=== PATIENT | male | born 1960 | race Caucasian/White ===

== ENCOUNTER 2021-08-04 10:25 | Emergency (ER) | payer OTHER ==
--- OUTSIDE RECORDS SUMMARY | 2021-08-04 10:28 | XMS REPORT | Continuity of Care Document ---
:1960 Author Organization [facility] Address [address] [place] [address] Dr. Goff [address] [place] [id number] Care Team Providers Name Role Phone DOTTIE Attending Clinician Unavailable Payers Payer Name Policy Type Policy Number Effective Date Expiration Date Robert cramer [facility] [id number] 2021 00:00:00 CHOICE/CHOICE PLUS Problems This patient has no known problems. Allergies, Adverse Reactions, Alerts This patient has no known allergies or adverse reactions. Medications This patient has no known medications. Procedures This patient has no known procedures. Encounters Start End Encounter Admission Attending Care Care Encounter Source Date/Time Date/Time Type Type Clinicians Facility Department ID 2021-07-25 Outpatient [facility] [id number] [place] 16:11:05 [employer] Results This patient has no known results.
[2021-08-04 12:00] LABS: Hematocrit 43.9 % (39.6-49.0); Lymphocytes % 9.3 % (15.3-44.8); MPV 8.5 fL (7.6-11.3); RBC Red Blood Cell Count 4.66 M/uL (4.33-5.43)
[2021-08-04 12:21] LABS: Potassium 4.3 mmol/L (3.5-5.1)
--- NOTE | 2021-08-04 12:21 | RAD REPORT ---
EXAM DESCRIPTION: CT - Soft Tissue Neck W/Contr - 08/04/2021 12:01 pm CLINICAL HISTORY: Left ear swelling COMPARISON: No comparisons TECHNIQUE: During dynamic enhancement using 100 milliliters nonionic IV contrast, axial 5 millimeter thick images of the neck were obtained. All CT scans are performed using dose optimization technique as appropriate and may include automated exposure control or mA/KV adjustment according to patient size. FINDINGS: Intracranial portion the examination is unremarkable. No globe or orbital content abnormal ity. No acute paranasal sinus finding. Patchy mucosal thickening changes are seen. No sclerotic or ex pansile sinus wall finding. No pharyngeal mucosal mass or asymmetry. Tonsillar and tongue base regions are unremarkable. Epiglott is and laryngeal structures show no suspicious findings. Parotid, submandibular and thyroid gland tissue show no suspicious findings. No vascular abnormality. Patient has significant circumferential thickening and edema of the soft tissues of the external brian tory canal extending into the auricular soft tissues. No abscess or drainable fluid collection. The l eft parotid gland does not appear to be involved. No abnormal lymphadenopathy seen. IMPRESSION: Otitis externa pattern with significant soft tissue edema and narrowing of the lumen. In fectious/ inflammatory changes extend to the auricular soft tissues. Left parotid gland does not appear to be involved. No drainable fluid collection. A few small reactiv e lymph nodes are present.
[2021-08-04] MEDS ORDERED: HYDROCODONE/APAP 10/325 TAB ONE (13:55)
--- NOTE | 2021-08-04 14:30 | EDPHYS ---
Physician Documentation [facility] Name: Jose Luis Wren Age: 61 yrs Sex: Male : 1960 Arrival Date: 08/04/2021 Time: 10:26 Bed 23 Private MD: Junior Heard ED Physician Elan Marques HPI: 08/04 17:43 This 61 yrs old Male presents to ER via Ambulatory with complaints of ear problem sent kdr by ofelia. 17:43 Since Sunday the patient has had worsening left ear pain. He saw his PCP today who sent kdr the patient to the ED for a CT scan. Patient had some eardrops in the left ear several times a day for the past couple of days without improvement.. Onset: The symptoms/episode began/occurred gradually, Sunday. Severity of symptoms: At their worst the symptoms were mild in the emergency department the symptoms are unchanged. The patient has not experienced similar symptoms in the past. The patient has been recently seen by a physician: the patient's primary care provider. Historical: - Allergies: 10:51 No Known Allergies; tw2 - Home Meds: 10:51 lisinopril 10 mg Oral tab 1 tab once daily [Active]; Protonix 40 mg Oral TbEC 1 tab tw2 once daily [Active]; rosuvastatin 5 mg oral tab 1 tab once daily [Active]; aspirin 81 mg oral tab 81 mg [Active]; - PMHx: 10:51 Hypertensive disorder; Hypercholesterolemia; tw2 - PSHx: 10:51 hernia, groin; tw2 - Immunization history:: Client reports receiving the 2nd dose of the Covid vaccine. - Social history:: Smoking status: Patient reports use of chewing tobacco. Patient denies any tobacco usage or history of. Patient/guardian denies using tobacco, Stopped _ months ago 5 Patient uses alcohol, occasionally. ROS: 17:43 Constitutional: Negative for fever, chills, and weight loss, Eyes: Negative for injury, kdr pain, redness, and discharge, Neck: Negative for injury, pain, and swelling, Cardiovascular: Negative for chest pain, palpitations, and edema. 17:43 ENT: Positive for drainage from ear(s), ear pain, Negative for injury or acute deformity, foreign body sensation, Gum pain hearing loss. Exam: 17:43 Constitutional: This is a well developed, well nourished patient who is awake, alert, kdr and in no acute distress. Head/Face: Normocephalic, atraumatic. Eyes: Pupils equal round and reactive to light, extra-ocular motions intact. Lids and lashes normal. Conjunctiva and sclera are non-icteric and not injected. Cornea within normal limits. Periorbital areas with no swelling, redness, or edema. Neck: Trachea midline, no thyromegaly or masses palpated, and no cervical lymphadenopathy. Supple, full range of motion without nuchal rigidity, or vertebral point tenderness. No Meningismus. Chest/axilla: Normal chest wall appearance and motion. Nontender with no deformity. No lesions are appreciated. 17:43 ENT: External ear(s): cellulitis, that is minimal, of the pinna of left ear, left ear lobe and left ear canal, erythema, that is moderate, of the , Ear canal(s): erythema, swelling, that is moderate, of the left canal, bilaterally. Vital Signs: 10:55 BP 187 / 104; Pulse 76; Resp 18; Temp 98.8(TE); Pulse Ox 100% on R/A; Weight 90.72 kg tw2 (R); Pain 8/10; 12:44 BP 170 / 93; Pulse 82; Resp 17; Pulse Ox 99% ; Pain 7/10; eo2 13:00 BP 169 / 96; Pulse 78; Resp 17; Pulse Ox 99% ; Pain 7/10; eo2 14:00 BP 171 / 94; Pulse 88; Resp 15; Pulse Ox 100% ; Pain 5/10; eo2 MDM: 14:29 Patient medically screened. kdr 17:43 Data reviewed: vital signs, nurses notes, lab test result(s), radiologic studies. kdr Counseling: I had a detailed discussion with the patient and/or guardian regarding: the historical points, exam findings, and any diagnostic results supporting the discharge/admit diagnosis, lab results, radiology results, the need for outpatient follow up. ED course: Dr. Heard was present for the exam intermittently on the evaluation. He asked that patient be discharged that he would put the patient on p.o. antibiotics and not on eardrops. Given that no eardrops will be involved, I will not place an ear wick at this time. The patient will follow up with ENT/Dr. Peres. 08/04 11:06 Order name: CBC with Diff; Complete Time: 12:51 kdr 08/04 11:06 Order name: Chem 7; Complete Time: 12:51 kdr 08/04 11:05 Order name: CT Soft Tissue Neck W/contr; Complete Time: 12:51 kdr Administered Medications: 13:56 Drug: [place] (HYDROcodone-acetaminophen) 10 mg-325 mg 1 tabs Route: PO; eo2 15:03 Follow up: Response: No adverse reaction; Pain is decreased eo2 Disposition Summary: 08/04/21 14:29 Discharge Ordered Location: Home kdr Problem: new kdr Symptoms: have improved kdr Condition: Stable kdr Diagnosis - Other otitis externa, left ear kdr Followup: kdr - With: Junior Heard MD - When: 2 - 3 days - Reason: If symptoms return, Further diagnostic work-up, Recheck today's complaints, Continuance of care, Re-evaluation by your physician Followup: kdr - With: Beverly Peres MD - When: 1 - 2 days - Reason: If symptoms return, Further diagnostic work-up, Recheck today's complaints, Continuance of care, Re-evaluation by your physician Discharge Instructions: - Discharge Summary Sheet kdr - Otitis Externa, [id number] kdr Forms: - Medication Reconciliation Form kdr - Thank You Letter kdr - Antibiotic Education kdr Prescriptions: - Tramadol 50 mg Oral Tablet - take 1 tablet by ORAL route every 4-6 hours As needed as needed; 12 tablet; kdr Refills: 0, Product Selection Permitted Signatures: Dispatcher [employer] Elan Biswas MD MD kdr Anna Dumont RN RN tw2 Dawn Carlson RN RN eo2
--- NOTE | 2021-08-04 14:30 | ER ---
Nurse's Notes [facility] Name: Jose Luis Wren Age: 61 yrs Sex: Male : 1960 Arrival Date: 08/04/2021 Time: 10:26 Bed 23 Private MD: Junior Heard Diagnosis: Other otitis externa, left ear Presentation: 08/04 10:50 Chief complaint: Patient states: i went to the dr yesterday. i was cleaning my ear out tw2 with a qtip Sunday and it was like i hit a nerve. the pain got worse. my LEFT ear. he did put me on an ear drop antibiotic and some asthma medicine. but i know it is not my allergies. also my left lymph nodes are swollen. Coronavirus screen: At this time, the client does not indicate any symptoms associated with coronavirus-19. Ebola Screen: Patient denies travel to an Ebola-affected area in the 21 days before illness onset. Initial Sepsis Screen: Does the patient meet any 2 criteria? No. Patient's initial sepsis screen is negative. Does the patient have a suspected source of infection? No. Patient's initial sepsis screen is negative. Risk Assessment: Do you want to hurt yourself or someone else? Patient reports no desire to harm self or others. Onset of symptoms was August 04, 2021. 10:50 Method Of Arrival: Ambulatory tw2 10:50 Acuity: MAXIMILIAN 3 tw2 Triage Assessment: 10:55 General: Appears in no apparent distress. well groomed, Behavior is calm, cooperative, tw2 appropriate for age. Pain: Complains of pain in left ear. Historical: - Allergies: 10:51 No Known Allergies; tw2 - Home Meds: 10:51 lisinopril 10 mg Oral tab 1 tab once daily [Active]; Protonix 40 mg Oral TbEC 1 tab tw2 once daily [Active]; rosuvastatin 5 mg oral tab 1 tab once daily [Active]; aspirin 81 mg oral tab 81 mg [Active]; - PMHx: 10:51 Hypertensive disorder; Hypercholesterolemia; tw2 - PSHx: 10:51 hernia, groin; tw2 - Immunization history:: Client reports receiving the 2nd dose of the Covid vaccine. - Social history:: Smoking status: Patient reports use of chewing tobacco. Patient denies any tobacco usage or history of. Patient/guardian denies using tobacco, Stopped _ months ago 5 Patient uses alcohol, occasionally. Screenin:44 Abuse screen: Denies threats or abuse. Denies injuries from another. Nutritional eo2 screening: No deficits noted. Tuberculosis screening: No symptoms or risk factors identified. Fall Risk None identified. Assessment: 12:43 General: Appears in no apparent distress. comfortable, Behavior is calm, cooperative. eo2 Pain: Complains of pain in left ear. Neuro: Level of Consciousness is awake, alert, obeys commands, Oriented to person, place, time, situation, Denies dizziness, headache. Cardiovascular: Denies chest pain, shortness of breath. Respiratory: Airway is patent Trachea midline Respiratory effort is even, unlabored, Respiratory pattern is regular, symmetrical, Breath sounds are clear bilaterally. Denies cough, shortness of breath. EENT: Reports decreased hearing left ear pain since left ear pain onset Sunday after cleaning ear with q-tips, swelling to left neck onset yesterday. 14:05 Reassessment: Pt requesting pain medication, received verbal order for [id number] PO eo2 once from Dr. Marques, order placed. Vital Signs: 10:55 BP 187 / 104; Pulse 76; Resp 18; Temp 98.8(TE); Pulse Ox 100% on R/A; Weight 90.72 kg tw2 (R); Pain 8/10; 12:44 BP 170 / 93; Pulse 82; Resp 17; Pulse Ox 99% ; Pain 7/10; eo2 13:00 BP 169 / 96; Pulse 78; Resp 17; Pulse Ox 99% ; Pain 7/10; eo2 14:00 BP 171 / 94; Pulse 88; Resp 15; Pulse Ox 100% ; Pain 5/10; eo2 ED Course: 10:26 Patient arrived in ED. as 10:27 Junior Heard MD is Private Physician. as 10:51 Triage completed. tw2 10:54 Arm band placed on. tw2 11:01 Elan Marques MD is Attending Physician. kdr 11:45 Inserted saline lock: 20 gauge in right antecubital area, using aseptic technique. eo2 Blood collected. 12:01 CT Soft Tissue Neck W/contr In Process Unspecified. EDMS 12:33 Dawn Carlson, RN is Primary Nurse. eo2 12:44 Patient has correct armband on for positive identification. Pulse ox on. NIBP on. Door eo2 closed. Noise minimized. Warm blanket given. 12:44 No provider procedures requiring assistance completed. eo2 14:27 Junior Heard MD is Referral Physician. kdr 14:27 Beverly Peres MD is Referral Physician. kdr 15:02 IV discontinued, intact. eo2 Administered Medications: 13:56 Drug: [place] (HYDROcodone-acetaminophen) 10 mg-325 mg 1 tabs Route: PO; eo2 15:03 Follow up: Response: No adverse reaction; Pain is decreased eo2 Outcome: 14:29 Discharge ordered by . kdr 15:02 Discharged to home ambulatory. eo2 15:02 Condition: stable 15:02 Discharge instructions given to patient, Instructed on discharge instructions, follow up and referral plans. medication usage, Demonstrated understanding of instructions, follow-up care, medications. 15:04 Patient left the ED. eo2 Signatures: Dispatcher [employer] EDMS Elan Marques MD MD kdr Sandra Lopez as Anna Dumont, RN RN tw2 Dawn Carlson, ALETHA RN eo2 Corrections: (The following items were deleted from the chart) 10:56 10:50 Chief complaint: Patient states: i went to the dr yesterday. i was cleaning my tw2 ear out with a qtip and it was like i hit a nerve. the pain got worse. my LEFT ear. he did put me on an ear drop antibiotic and some asthma medicine. but i know it is not my allergies. also my left lymph nodes are swollen tw2
[2021-08-04 15:58] VITALS: TEMP 98.8
[2021-08-04 16:02] VITALS: BP 171/94; O2SAT 100
== END 2021-08-04 15:04 | disposition home or self-care (01) ==
LOC: ER 10:25
DX: H60.8X2 Other otitis externa, left ear (principal); I10 Essential (primary) hypertension; F17.220 Nicotine dependence, chewing tobacco, uncomplicated; E78.00 Pure hypercholesterolemia, unspecified
CPT/HCPCS: 85025; 80048; 36415; 82565; 70491; 99284; Q9967